=== PATIENT | male | born 1985 | race Hispanic/Latino ===

== ENCOUNTER 2024-03-17 05:57 | Emergency (ER) | payer OTHER ==
[~2024-03-17] VITALS: Ht 175.3 cm; Wt 154.4 kg
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
[2024-03-17 06:28] LABS: BASOPHILS # (AUTO) 0.04 K/uL (0.00-0.20); BASOPHILS % (AUTO) 0.5 % (0.0-5.0); EOSINOPHILS # (AUTO) 0.09 K/uL (0.00-0.70); EOSINOPHILS % (AUTO) 1.2 % (0.0-8.0); HEMATOCRIT 44.3 % (42-54); IMMATURE GRANULOCYTE ABSOLUTE 0.02 K/uL (0-1); MEAN CORPUSCULAR HEMOGLOBIN 27.9 pg (27.0-33.0); MEAN CORPUSCULAR VOLUME 84.5 fL (79-99); MONOCYTES # (AUTO) 0.4 K/uL (0.1-1.0); MONOCYTES % (AUTO) 5.8 % (3.0-13.0); NEUTROPHILS # (AUTO) 4.8 K/uL (1.8-7.7); NEUTROPHILS % (AUTO) 65.2 % (40.0-77.0); PLATELET COUNT (AUTO) 195 K/uL (130-400); RED BLOOD CELL COUNT(AUTO) 5.24 MIL/uL (4.50-6.20); RED CELL DISTRIBUTION WIDTH 13.6 % (11.0-15.5); WHITE BLOOD COUNT (AUTO) 7.4 K/uL (4.8-10.8)
[2024-03-17 06:48] LABS: CREATININE 0.8 mg/dL (0.5-1.3); POTASSIUM 4.2 mmol/L (3.5-5.1)
--- NOTE | 2024-03-17 07:20 | EKG ---
[facility] Test Date: 2024-03-17 Test Time: 06:11:07 Pat Name: MEGA KAPOOR Department: ED Room: Gender: M [employer]er: [id number] : 1985 Requested By: CRYSTAL HARDY Order Number: [id number] Reading MD: Max Mckeon Measurements Intervals [place] Rate: 62 P: 26 VA: 149 QRS: -2 QRSD: 99 T: 21 QT: 414 QTc: 423 Interpretive Statements Sinus rhythm Low voltage, precordial leads No previous ECG available for comparison Electronically Signed On 03-17-2024 21:08:28 REINFORCER by Max Mckeon Please click the below link to view image of tracing.
[2024-03-17] MEDS ORDERED: ACET-66 PO (07:48)
[2024-03-17] MEDS: ketOROlac 30MG VIAL (30MG/ML) IVP ONE (07:51)
[2024-03-17] MEDS: 0.9%NACL 1000ML 1,000 ML IV ONE (07:52)
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
[2024-03-17 09:10] VITALS: BP 156/82; PULSE 67; RESP 20; TEMP 98.4; O2SAT 100
== END 2024-03-17 09:13 | disposition home or self-care (01) ==
LOC: EDH 05:57
DX: S20.219A Contusion of unspecified front wall of thorax, initial encounter (principal); S09.90XA Unspecified injury of head, initial encounter; E66.01 Morbid (severe) obesity due to excess calories; I10 Essential (primary) hypertension; V89.2XXA Person injured in unspecified motor-vehicle accident, traffic, initial encounter; Y93.89 Activity, other specified; Y92.89 Other specified places as the place of occurrence of the external cause; Y99.8 Other external cause status
CPT/HCPCS: 99285; 70450; 96374; 96361; 82550; 84484; 80048; 85025; 36415; 72125; 71250; 74176; 93005; J7030; J1885